=== PATIENT | male | born 1940 | race African-American/Black ===

== ENCOUNTER 2022-04-21 20:06 | Emergency (ER) | payer MEDICARE ==
[~2022-04-21] VITALS: Ht 170.2 cm; Wt 95.7 kg
[2022-04-21 22:13] VITALS: BP 147/63
[2022-04-22] MEDS ORDERED: CYCLOBENZAPRINE 10MG TABLET PO ONE (02:45)
[2022-04-22] MEDS ORDERED: IBUPROFEN 800MG TABLET PO ONE (02:45)
[2022-04-22] MEDS ORDERED: HYDR-4001 MT (06:09)
== END 2022-04-22 09:07 | disposition home or self-care (01) ==
LOC: ER 20:06
DX: S40.011A Contusion of right shoulder, initial encounter (principal); M54.59 Other low back pain; G89.11 Acute pain due to trauma; I10 Essential (primary) hypertension; M48.07 Spinal stenosis, lumbosacral region; V49.49XA Driver injured in collision with other motor vehicles in traffic accident, initial encounter; Y93.89 Activity, other specified; Y92.488 Other paved roadways as the place of occurrence of the external cause
CPT/HCPCS: 72131; 73030; 99284